=== PATIENT | male | born 1965 | race Caucasian/White ===

== ENCOUNTER 2019-09-13 08:44 | Emergency (ER) | payer OTHER ==
[~2019-09-13] VITALS: Ht 170.1 cm; Wt 106.6 kg
[~2019-09-13 08:44] MED LIST: AMOXICILLIN500 MG PO; CEPHALEXIN500 M1 PO; DEBROX 15 ML15 M1 OT; LIDEX 0.05% CRE15 GM T; PREDNISONE20 M1 PO; ZYRTEC10 MG PO
[2019-09-13 08:55] VITALS: BP 170/88
[2019-09-13 10:16] LABS: BASO # 0.1 10*3/uL (0.0-0.1); BASO % 0.9 % (0.0-1.0); EOS # 0.5 10*3/uL (0.0-0.4); EOS % 5.3 % (1.0-4.0); HEMATOCRIT 45.6 % (42.0-52.0); HEMOGLOBIN 15.7 g/dl (14.0-18.0); LYMPH # 2.5 10*3/uL (1.3-4.4); LYMPH % 24.4 % (27.0-41.0); MEAN CELL VOLUME 88.4 fl (80.0-94.0); MEAN CORPUSCULAR HGB 30.4 pg (27.0-31.0); MEAN CORPUSCULAR HGB CONC 34.4 g/dl (33.0-37.0); MEAN PLATELET VOLUME 11.3 fl (9.6-12.3); MONO # 0.8 10*3/uL (0.1-1.0); MONO % 7.5 % (3.0-9.0); NEUT # 6.3 10*3/uL (2.3-7.9); NEUT % 61.4 % (47.0-73.0); PLATELET COUNT AUTOMATED 213 10*3/uL (130-400); RED BLOOD COUNT 5.16 10*6/uL (4.50-5.90); RED CELL DISTRI WIDTH 12.9 % (0-14.5); WHITE BLOOD COUNT 10.3 10*3/uL (4.8-10.8)
[2019-09-13 10:31] LABS: ALBUMIN 3.8 gm/dl (3.1-4.5); ALKALINE PHOSPHATASE 77 U/L (45-117); BUN 12 mg/dl (7-24); CHLORIDE 111 mmol/L (98-107); CREATININE 1.11 mg/dL (0.70-1.30); POTASSIUM 4.5 mmol/L (3.5-5.1); SGOT/AST 11 IU/L (3-35); SGPT/ALT 25 U/L (12-78); SODIUM 141 mmol/L (136-145); TOTAL PROTEIN 7.7 gm/dL (6.4-8.2)
== END 2019-09-13 10:59 | disposition home or self-care (01) ==
LOC: ED 08:44
PROVIDERS: Nurse Practitioner Family
DX: K04.7 Periapical abscess without sinus (principal); K08.89 Other specified disorders of teeth and supporting structures; K03.81 Cracked tooth; Z87.891 Personal history of nicotine dependence

== ENCOUNTER 2019-10-08 05:07 | Inpatient (IN) | payer OTHER ==
[~2019-10-08] VITALS: Ht 170.1 cm; Wt 108.6 kg
[2019-10-08 05:16] VITALS: BP 122/89
[2019-10-08 06:18] VITALS: BP 145/75
[2019-10-08 06:22] LABS: BASO # 0.1 10*3/uL (0.0-0.1); BASO % 0.3 % (0.0-1.0); EOS % 0.1 % (1.0-4.0); HEMATOCRIT 39.4 % (42.0-52.0); HEMOGLOBIN 13.3 g/dl (14.0-18.0); LYMPH # 1.6 10*3/uL (1.3-4.4); LYMPH % 8.1 % (27.0-41.0); MEAN CELL VOLUME 87.6 fl (80.0-94.0); MEAN CORPUSCULAR HGB 29.6 pg (27.0-31.0); MEAN CORPUSCULAR HGB CONC 33.8 g/dl (33.0-37.0); MEAN PLATELET VOLUME 10.3 fl (9.6-12.3); MONO # 1.3 10*3/uL (0.1-1.0); MONO % 6.7 % (3.0-9.0); NEUT # 16.1 10*3/uL (2.3-7.9); NEUT % 84.2 % (47.0-73.0); PLATELET COUNT AUTOMATED 252 10*3/uL (130-400); RED CELL DISTRI WIDTH 13.1 % (0-14.5); WHITE BLOOD COUNT 19.1 10*3/uL (4.8-10.8)
[2019-10-08 06:39] LABS: ALBUMIN 3.3 gm/dl (3.1-4.5); ALKALINE PHOSPHATASE 66 U/L (45-117); BUN 9 mg/dl (7-24); CHLORIDE 109 mmol/L (98-107); CREATININE 1.04 mg/dL (0.70-1.30); POTASSIUM 3.9 mmol/L (3.5-5.1); SGOT/AST 19 IU/L (3-35); SGPT/ALT 23 U/L (12-78); SODIUM 140 mmol/L (136-145); TOTAL PROTEIN 7.5 gm/dL (6.4-8.2)
[2019-10-08 06:40] LABS: TROPONIN I < 0.015 ng/ml (<0.045)
[2019-10-08 06:43] LABS: PHOSPHOROUS 2.1 mg/dL (2.5-4.9)
[2019-10-08 06:48] LABS: THYROID STIM HORMONE (HS) 1.23 uIU/ml (0.358-4.75)
[2019-10-08 08:00] VITALS: BP 130/82; BP 144/78
[2019-10-08 09:18] LABS: VITAMIN D, 25-HYDROXY 7.8 ng/mL (30-100)
[2019-10-08 12:00] VITALS: BP 125/71
[2019-10-08 16:00] VITALS: BP 116/65
[2019-10-08 20:00] VITALS: BP 130/74
[2019-10-09] VITALS: BP 121/61
[2019-10-09 06:45] LABS: HEMATOCRIT 37.5 % (42.0-52.0); HEMOGLOBIN 12.2 g/dl (14.0-18.0); MEAN CELL VOLUME 89.3 fl (80.0-94.0); MEAN CORPUSCULAR HGB CONC 32.5 g/dl (33.0-37.0); MEAN PLATELET VOLUME 10.4 fl (9.6-12.3); PLATELET COUNT AUTOMATED 258 10*3/uL (130-400); RED CELL DISTRI WIDTH 13.2 % (0-14.5); WHITE BLOOD COUNT 21.4 10*3/uL (4.8-10.8)
[2019-10-09 07:34] LABS: TOTAL CELLS COUNTED 100 #CELLS
[2019-10-09 07:35] LABS: PLATELET SUFFICIENCY NORMAL (NORMAL)
[2019-10-09 08:00] VITALS: BP 135/68
[2019-10-09 12:00] VITALS: BP 148/96
[2019-10-09 16:00] VITALS: BP 131/70
[2019-10-09 20:00] VITALS: BP 131/69
[2019-10-10] VITALS: BP 136/69
[2019-10-10 08:00] VITALS: BP 143/76
[2019-10-10 12:00] VITALS: BP 139/78
[2019-10-10 12:33] LABS: HEMATOCRIT 38.4 % (42.0-52.0); MEAN CELL VOLUME 87.3 fl (80.0-94.0); MEAN CORPUSCULAR HGB 29.5 pg (27.0-31.0); MEAN CORPUSCULAR HGB CONC 33.9 g/dl (33.0-37.0); MEAN PLATELET VOLUME 10.1 fl (9.6-12.3); PLATELET COUNT AUTOMATED 285 10*3/uL (130-400); RED CELL DISTRI WIDTH 13.1 % (0-14.5)
[2019-10-10 12:54] LABS: PLATELET SUFFICIENCY NORMAL (NORMAL); TOTAL CELLS COUNTED 100 #CELLS; TOXIC GRANULATION SLIGHT
[2019-10-10 16:00] VITALS: BP 139/80
[2019-10-10 20:00] VITALS: BP 129/78
[2019-10-11] VITALS: BP 134/78
[2019-10-11 07:07] LABS: CREATININE 0.96 mg/dL (0.70-1.30)
[2019-10-11 08:00] VITALS: BP 150/76
[2019-10-11] MEDS ORDERED: PANTOPRAZOLE SO40 MG PO (11:25)
[2019-10-11] MEDS ORDERED: LEVAQUIN750 M1 PO (11:25)
[2019-10-11] MEDS ORDERED: PREDNISONE10 MG PO (11:25)
[2019-10-11] MEDS ORDERED: BENZONATATE100 M1 PO (11:25)
== END 2019-10-11 12:53 | disposition home or self-care (01) | DRG 871 ==
LOC: ED 05:07 → EDHOLD 05:55 → 4E 05:55
PROVIDERS: Emergency Medicine Emergency Medical Services; Internal Medicine; Internal Medicine Critical Care Medicine; Student in an Organized Health Care Education/Training Program; ADMIT Family Medicine
DX: A41.9 Sepsis, unspecified organism (principal); J18.9 Pneumonia, unspecified organism; J96.01 Acute respiratory failure with hypoxia; J44.1 Chronic obstructive pulmonary disease with (acute) exacerbation; J44.0 Chronic obstructive pulmonary disease with (acute) lower respiratory infection; R65.20 Severe sepsis without septic shock; R61 Generalized hyperhidrosis; R73.9 Hyperglycemia, unspecified; E87.8 Other disorders of electrolyte and fluid balance, not elsewhere classified; E66.9 Obesity, unspecified; K04.7 Periapical abscess without sinus; E78.5 Hyperlipidemia, unspecified; F17.210 Nicotine dependence, cigarettes, uncomplicated; D64.9 Anemia, unspecified; D72.9 Disorder of white blood cells, unspecified; D72.810 Lymphocytopenia; Z71.6 Tobacco abuse counseling; Z88.1 Allergy status to other antibiotic agents; Z82.49 Family history of ischemic heart disease and other diseases of the circulatory system; Z80.8 Family history of malignant neoplasm of other organs or systems; Z68.37 Body mass index [BMI] 37.0-37.9, adult

== ENCOUNTER → 2019-11-01 | Outpatient (CLI) | payer OTHER ==
[~2019-11-01] MED LIST changes: +BENZONATATE100 M1 PO; +LEVAQUIN750 M1 PO; +PANTOPRAZOLE SO40 MG PO; +PREDNISONE10 MG PO
== END | disposition home or self-care (01) ==
LOC: RESCLI 11:42
DX: J18.9 Pneumonia, unspecified organism (principal); F17.200 Nicotine dependence, unspecified, uncomplicated

== ENCOUNTER → 2020-01-20 | Outpatient (CLI) | payer OTHER ==
[2020-01-20 16:39] LABS: BASO # 0.1 10*3/uL (0.0-0.1); BASO % 0.9 % (0.0-1.0); EOS # 1.1 10*3/uL (0.0-0.4); EOS % 8.5 % (1.0-4.0); HEMATOCRIT 46.1 % (42.0-52.0); LYMPH % 23.4 % (27.0-41.0); MEAN CELL VOLUME 86.8 fl (80.0-94.0); MEAN CORPUSCULAR HGB 29.4 pg (27.0-31.0); MEAN CORPUSCULAR HGB CONC 33.8 g/dl (33.0-37.0); MEAN PLATELET VOLUME 10.5 fl (9.6-12.3); MONO # 0.8 10*3/uL (0.1-1.0); MONO % 6.1 % (3.0-9.0); NEUT # 7.7 10*3/uL (2.3-7.9); NEUT % 60.5 % (47.0-73.0); PLATELET COUNT AUTOMATED 235 10*3/uL (130-400); RED BLOOD COUNT 5.31 10*6/uL (4.50-5.90); RED CELL DISTRI WIDTH 14.1 % (0-14.5); WHITE BLOOD COUNT 12.7 10*3/uL (4.8-10.8)
== END | disposition home or self-care (01) ==
LOC: LAB 16:23
PROVIDERS: Internal Medicine Critical Care Medicine
DX: Z79.899 Other long term (current) drug therapy (principal)

== ENCOUNTER → 2020-06-25 | Outpatient (CLI) | payer OTHER | END | disposition home or self-care (01) | LOC: COVID19 14:32 | PROVIDERS: ATTEND Internal Medicine Critical Care Medicine | DX: Z20.828 Contact with and (suspected) exposure to other viral communicable diseases (principal) ==

== ENCOUNTER 2021-01-22 13:28 | Emergency (ER) | payer BC ==
[~2021-01-22] VITALS: Wt 113.4 kg
[2021-01-22 13:34] VITALS: BP 172/90
[2021-01-22 13:52] LABS: BASO # 0.1 10*3/uL (0.0-0.1); BASO % 0.8 % (0.0-1.0); EOS # 1.2 10*3/uL (0.0-0.4); EOS % 8.7 % (1.0-4.0); HEMATOCRIT 44.7 % (42.0-52.0); LYMPH # 1.7 10*3/uL (1.3-4.4); LYMPH % 12.5 % (27.0-41.0); MEAN CELL VOLUME 85.3 fl (80.0-94.0); MEAN CORPUSCULAR HGB 29.2 pg (27.0-31.0); MEAN CORPUSCULAR HGB CONC 34.2 g/dl (33.0-37.0); MEAN PLATELET VOLUME 10.5 fl (9.6-12.3); MONO # 1.1 10*3/uL (0.1-1.0); MONO % 7.9 % (3.0-9.0); NEUT # 9.6 10*3/uL (2.3-7.9); NEUT % 69.7 % (47.0-73.0); PLATELET COUNT AUTOMATED 203 10*3/uL (130-400); RED BLOOD COUNT 5.24 10*6/uL (4.50-5.90); RED CELL DISTRI WIDTH 13.2 % (0-14.5); WHITE BLOOD COUNT 13.7 10*3/uL (4.8-10.8)
[2021-01-22 14:15] LABS: ALKALINE PHOSPHATASE 83 U/L (45-117); BUN 11 mg/dl (7-24); CHLORIDE 107 mmol/L (98-107); SGOT/AST 20 IU/L (3-35); SGPT/ALT 34 U/L (12-78); SODIUM 137 mmol/L (136-145); TOTAL PROTEIN 7.8 gm/dL (6.4-8.2)
[2021-01-22 14:17] LABS: TROPONIN I < 0.015 ng/ml (<0.045)
[2021-01-22] MEDS ORDERED: LEVOFLOXACIN750 M2 PO (15:38)
[2021-01-22] MEDS ORDERED: PREDNISONE10 MG PO (15:38)
== END 2021-01-22 15:41 ==
LOC: ED 13:28
PROVIDERS: Emergency Medicine
DX: J44.1 Chronic obstructive pulmonary disease with (acute) exacerbation (principal); F17.200 Nicotine dependence, unspecified, uncomplicated; Z88.1 Allergy status to other antibiotic agents; Z79.899 Other long term (current) drug therapy; Z79.2 Long term (current) use of antibiotics

== ENCOUNTER 2021-10-31 12:56 | Inpatient (IN) | payer BC ==
[~2021-10-31] VITALS: Ht 172.7 cm; Wt 113.9 kg
[~2021-10-31 12:56] MED LIST changes: +LEVOFLOXACIN750 M2 PO
[2021-10-31 13:04] VITALS: BP 166/72
[2021-10-31 13:31] LABS: BASO # 0.1 10*3/uL (0.0-0.1); BASO % 0.6 % (0.0-1.0); EOS # 1.2 10*3/uL (0.0-0.4); HEMATOCRIT 44.9 % (42.0-52.0); LYMPH # 1.8 10*3/uL (1.3-4.4); LYMPH % 9.5 % (27.0-41.0); MEAN CELL VOLUME 85.9 fl (80.0-94.0); MEAN CORPUSCULAR HGB 29.3 pg (27.0-31.0); MEAN CORPUSCULAR HGB CONC 34.1 g/dl (33.0-37.0); MEAN PLATELET VOLUME 10.6 fl (9.6-12.3); MONO # 1.4 10*3/uL (0.1-1.0); MONO % 7.1 % (3.0-9.0); NEUT # 14.7 10*3/uL (2.3-7.9); NEUT % 76.3 % (47.0-73.0); PLATELET COUNT AUTOMATED 196 10*3/uL (130-400); RED BLOOD COUNT 5.23 10*6/uL (4.50-5.90); RED CELL DISTRI WIDTH 13.2 % (0-14.5); WHITE BLOOD COUNT 19.2 10*3/uL (4.8-10.8)
[2021-10-31 13:51] LABS: ALKALINE PHOSPHATASE 71 U/L (45-117); BUN 18 mg/dl (7-24); CHLORIDE 109 mmol/L (98-107); CREATININE 0.99 mg/dL (0.70-1.30); POTASSIUM 3.8 mmol/L (3.5-5.1); SGOT/AST 23 IU/L (3-35); SGPT/ALT 50 U/L (12-78); SODIUM 139 mmol/L (136-145); TOTAL PROTEIN 7.7 gm/dL (6.4-8.2)
[2021-10-31 15:20] VITALS: BP 150/75
[2021-10-31] MEDS ORDERED: BREO ELLIPTA 21 EACH BC (15:36)
[2021-10-31] MEDS ORDERED: CYCLOBENZAPRINE10 MG PO (15:37)
[2021-10-31 20:00] VITALS: BP 151/77
[2021-11-01] VITALS: BP 153/86
[2021-11-01 05:50] LABS: BUN 18 mg/dl (7-24); CHLORIDE 109 mmol/L (98-107); CREATININE 0.89 mg/dL (0.70-1.30); POTASSIUM 4.6 mmol/L (3.5-5.1); SODIUM 139 mmol/L (136-145)
[2021-11-01 05:54] LABS: CHOLESTEROL 164 mg/dL (<200); TRIGLYCERIDES 75 mg/dl (<150)
[2021-11-01 06:01] LABS: FREE T4 1.14 ng/dl (0.76-1.46); LDL CHOLESTEROL 96 mg/dL (9-159); THYROID STIM HORMONE (HS) 0.728 uIU/ml (0.358-4.75)
[2021-11-01 06:22] LABS: BASO % 0.1 % (0.0-1.0); EOS % 0.2 % (1.0-4.0); LYMPH # 1.3 10*3/uL (1.3-4.4); LYMPH % 9.2 % (27.0-41.0); MEAN CELL VOLUME 86.8 fl (80.0-94.0); MEAN CORPUSCULAR HGB 28.7 pg (27.0-31.0); MEAN PLATELET VOLUME 11.4 fl (9.6-12.3); MONO # 0.8 10*3/uL (0.1-1.0); MONO % 5.3 % (3.0-9.0); NEUT # 12.1 10*3/uL (2.3-7.9); NEUT % 84.4 % (47.0-73.0); PLATELET COUNT AUTOMATED 202 10*3/uL (130-400); RED CELL DISTRI WIDTH 13.1 % (0-14.5); WHITE BLOOD COUNT 14.4 10*3/uL (4.8-10.8)
[2021-11-01 07:42] LABS: VITAMIN D, 25-HYDROXY 10.9 ng/mL (30-100)
[2021-11-01 08:00] VITALS: BP 152/73
[2021-11-01 12:00] VITALS: BP 145/86
[2021-11-01 16:00] VITALS: BP 135/70
[2021-11-01 20:00] VITALS: BP 123/63
[2021-11-02] VITALS: BP 128/58
[2021-11-02 08:00] VITALS: BP 129/75
[2021-11-02 12:00] VITALS: BP 136/77
[2021-11-02 16:00] VITALS: BP 138/78
[2021-11-02] MEDS ORDERED: DOXYCYCLINE MO100 M1 PO (17:21)
[2021-11-02] MEDS ORDERED: VENTOLIN 02.5 MG/3 M NEB (17:23)
[2021-11-02] MEDS ORDERED: LISINOPRIL5 MG PO (17:24)
[2021-11-02] MEDS ORDERED: VITAMIN D350 MC2 PO (17:25)
== END 2021-11-02 18:06 | disposition home or self-care (01) | DRG 871 ==
LOC: ED 12:56 → EDHOLD 14:26 → 5E 14:26
PROVIDERS: Physician Assistant; Registered Nurse; ADMIT Internal Medicine; ATTEND Internal Medicine
DX: A41.9 Sepsis, unspecified organism (principal); J18.9 Pneumonia, unspecified organism; J44.1 Chronic obstructive pulmonary disease with (acute) exacerbation; J82.83 Eosinophilic asthma; J44.0 Chronic obstructive pulmonary disease with (acute) lower respiratory infection; E55.9 Vitamin D deficiency, unspecified; F17.210 Nicotine dependence, cigarettes, uncomplicated; J40 Bronchitis, not specified as acute or chronic; I10 Essential (primary) hypertension; E66.01 Morbid (severe) obesity due to excess calories; Z88.8 Allergy status to other drugs, medicaments and biological substances; Z80.8 Family history of malignant neoplasm of other organs or systems; Z82.49 Family history of ischemic heart disease and other diseases of the circulatory system; Z79.899 Other long term (current) drug therapy; Z68.39 Body mass index [BMI] 39.0-39.9, adult

== ENCOUNTER 2024-02-19 12:26 | Emergency (ER) | payer BC ==
[~2024-02-19] VITALS: Ht 170.1 cm; Wt 117.9 kg
[~2024-02-19 12:26] MED LIST changes: +BREO ELLIPTA 21 EACH BC; +CYCLOBENZAPRINE10 MG PO; +DOXYCYCLINE MO100 M1 PO; +LISINOPRIL5 MG PO; +VENTOLIN 02.5 MG/3 M NEB; +VITAMIN D350 MC2 PO
[2024-02-19] MEDS ORDERED: FASENRA PE30 MG/1 ML SQ (12:36)
[2024-02-19] MEDS ORDERED: TRELEGY ELLIPT1 EAC1 INH (12:36)
[2024-02-19 12:37] VITALS: BP 173/96
[2024-02-19] MEDS ORDERED: MONTELUKAST SOD10 MG PO (12:37)
[2024-02-19] MEDS ORDERED: ALBUTEROL HFA 90 MCG INH (12:37)
[2024-02-19 13:14] LABS: BASO % 0.3 % (0.0-1.0); HEMATOCRIT 47.7 % (42.0-52.0); LYMPH # 1.8 10*3/uL (1.3-4.4); LYMPH % 17.8 % (27.0-41.0); MEAN CELL VOLUME 85.5 fl (80.0-94.0); MEAN CORPUSCULAR HGB 28.7 pg (27.0-31.0); MEAN CORPUSCULAR HGB CONC 33.5 g/dl (33.0-37.0); MEAN PLATELET VOLUME 10.9 fl (9.6-12.3); MONO # 0.9 10*3/uL (0.1-1.0); MONO % 9.1 % (3.0-9.0); NEUT # 7.5 10*3/uL (2.3-7.9); NEUT % 72.4 % (47.0-73.0); PLATELET COUNT AUTOMATED 197 10*3/uL (130-400); RED BLOOD COUNT 5.58 10*6/uL (4.50-5.90); RED CELL DISTRI WIDTH 13.2 % (0-14.5); WHITE BLOOD COUNT 10.4 10*3/uL (4.8-10.8)
[2024-02-19 13:37] LABS: ALKALINE PHOSPHATASE 90 U/L (46-116); BUN 7 mg/dl (9-23); CHLORIDE 110 mmol/L (98-107); POTASSIUM 3.9 mmol/L (3.4-5.1); SGPT/ALT 25 U/L (5-49); TOTAL PROTEIN 7.1 gm/dL (6.0-8.0)
[2024-02-19 13:38] LABS: ACT PARTIAL THROMBO TIME 29.6 SECONDS (20.0-32.1)
[2024-02-19] MEDS ORDERED: SODIUM CHLORIDE 0.9% 1,000 ML IV ONE (13:50)
[2024-02-19 13:57] LABS: BILIRUBIN Negative (Negative); BLOOD Negative (Negative); CLARITY Clear (Clear); COLOR Yellow (Yellow); GLUCOSE Negative (Negative); KETONE Trace (Negative); LEUKO ESTERASE Negative (Negative); NITRITE Negative (Negative); PH 5.5 (4.5-8.0); SPECIFIC GRAVITY >= 1.030 (1.001-1.030)
[2024-02-19 14:13] LABS: BACTERIA TRACE; EPITHELIAL CELLS 0-2; MUCOUS TRACE; RBC 0-2 rbc/hpf (0-2); WBC 0-2 wbc/hpf (0-5)
[2024-02-19] MEDS ORDERED: AMOX-CLAV 875-1 EACH PO (15:47)
== END 2024-02-19 15:56 | disposition home or self-care (01) ==
LOC: ED 12:26
PROVIDERS: Internal Medicine
DX: K04.7 Periapical abscess without sinus (principal); M79.651 Pain in right thigh; R10.9 Unspecified abdominal pain; M79.601 Pain in right arm; F17.210 Nicotine dependence, cigarettes, uncomplicated; Z88.1 Allergy status to other antibiotic agents; Z98.890 Other specified postprocedural states

== ENCOUNTER → 2024-07-18 | Outpatient (CLI) | payer BC ==
[~2024-07-18] MED LIST changes: +ALBUTEROL HFA 90 MCG INH; +AMOX-CLAV 875-1 EACH PO; +FASENRA PE30 MG/1 ML SQ; +MONTELUKAST SOD10 MG PO; +TRELEGY ELLIPT1 EAC1 INH
== END | disposition home or self-care (01) ==
LOC: CT 13:00
PROVIDERS: ATTEND Internal Medicine Critical Care Medicine
DX: Z12.2 Encounter for screening for malignant neoplasm of respiratory organs (principal); J45.50 Severe persistent asthma, uncomplicated; R91.8 Other nonspecific abnormal finding of lung field; I25.10 Atherosclerotic heart disease of native coronary artery without angina pectoris; J30.89 Other allergic rhinitis; Z87.891 Personal history of nicotine dependence; Z68.41 Body mass index [BMI] 40.0-44.9, adult

== ENCOUNTER → 2025-08-07 | Outpatient (CLI) | payer BC | END | disposition home or self-care (01) | LOC: CT 09:00 | PROVIDERS: ATTEND Internal Medicine Critical Care Medicine | DX: J44.9 Chronic obstructive pulmonary disease, unspecified (principal); R91.1 Solitary pulmonary nodule; J45.50 Severe persistent asthma, uncomplicated; J30.89 Other allergic rhinitis; Z87.891 Personal history of nicotine dependence; Z68.39 Body mass index [BMI] 39.0-39.9, adult ==